=== PATIENT | male | born 2000 | race Caucasian/White ===

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

== ENCOUNTER 2019-11-23 00:30 | Emergency (ER) | payer BC, OTHER ==
[2019-11-23] MEDS ORDERED: ONDANSETRON 4 MG/2 ML VIAL IVP STA (01:30)
[2019-11-23] MEDS ORDERED: SODIUM CHLORIDE 0.9% 1,000 ML IV STA (01:30)
--- NOTE | 2019-11-23 01:45 | XR ---
EXAMINATION TYPE: XR KUB DATE OF EXAM: 11/23/2019 COMPARISON: NONE HISTORY: Nausea and vomiting TECHNIQUE: 2 views upright FINDINGS: Bowel gas pattern is normal. There is no sign of intestinal obstruction or pneumoperitoneum . Fecal pattern is normal. Lung bases are clear. There is no evidence of a mass. IMPRESSION: Nonacute abdomen.
[2019-11-23 01:48] LABS: Basophils # (A) 0.1 k/uL (0-0.2); Basophils % (A) 2 %; Eosinophils # (A) 0.1 k/uL (0-0.7); Eosinophils % (A) 2 %; HCT 45.7 % (39.0-53.0); HGB 15.4 gm/dL (13.0-17.5); Lymphocytes # (A) 0.2 k/uL (1.0-4.8); Lymphocytes % (A) 4 %; MCHC 33.8 g/dL (31.0-37.0); MCV 88.8 fL (80.0-100.0); Mean Platelet Volume 6.9; Monocytes # (A) 0.2 k/uL (0-1.0); Monocytes % (A) 6 %; Neutrophils # (A) 3.6 k/uL (1.3-7.7); Neutrophils % (A) 85 %; Platelet Count 111 k/uL (150-450); RBC 5.15 m/uL (4.30-5.90); WBC 4.2 k/uL (3.8-10.6)
[2019-11-23 01:59] LABS: Appearance,Urine Clear (Clear); Bilirubin,Urine Negative (Negative); Blood,Urine Negative (Negative); Color,Urine Yellow; Glucose,Urine (UA) Negative (Negative); Ketones,Urine Negative (Negative); Leukocyte Esterase,Urine Negative (Negative); Nitrite,Urine Negative (Negative); PH, Urine 6.5 (5.0-8.0); Protein,Urine Trace (Negative); Specific Gravity,Urine 1.031 (1.001-1.035)
[2019-11-23 02:13] LABS: ALT 17 U/L (4-49); AST 22 U/L (17-59); African American GFR (CKD) >90 (>60 ml/min/1.73 sqM); Alkaline Phosphatase 61 U/L (38-126); Anion Gap 5 mmol/L; Blood Urea Nitrogen 15 mg/dL (9-20); Calcium 9.1 mg/dL (8.4-10.2); Carbon Dioxide 28 mmol/L (22-30); Chloride 105 mmol/L (98-107); Glucose 104 mg/dL (74-99); Non-African American GFR(CKD) >90 (>60 ml/min/1.73 sqM); Potassium 3.8 mmol/L (3.5-5.1); Sodium 138 mmol/L (137-145); Total Bilirubin 0.6 mg/dL (0.2-1.3); Total Protein 6.3 g/dL (6.3-8.2)
[2019-11-23] MEDS ORDERED: ONDANSETRON 4 MG ODT STARTER PACK 2 TAB BTL PO STA (02:42)
--- NOTE | 2019-11-23 02:43 | ED ---
General Adult HPI - General Chief complaint: Abdominal Pain Stated complaint: problems with gallbladder Time Seen by Provider: 11/23/19 01:09 Source: patient, RN notes reviewed, old records reviewed Mode of arrival: ambulatory Limitations: no limitations - History of Present Illness Initial comments: 19-year-old male patient with no pertinent past medical history presents to ED for chief complaint of approximately 3 weeks of nausea vomiting and diarrhea. Patient reports that over the last 3 weeks after he eats greasy foods she is having nausea vomiting and diarrhea. Patient also reports that he has had some waxing and waning fevers and chills. Denies any other complaints at this time. Systemic: Pt denies fatigue, fever/chills, rash. Pt denies weakness, night sweats, weight loss. Neuro: Pt denies headache, visual disturbances, syncope or pre-syncope. HEENT: Pt denies ocular discharge or irritation, otalgia, rhinorrhea, pharyngitis or notable lymphadenopathy. Cardiopulmonary: Pt denies chest pain, SOB, heart palpitations, dyspnea on exert ion. Abdominal/GI: Pt denies abdominal pain. : Pt denies dysuria, burning w/ urination, frequency/urgency. Denies new onset urinary or bowel incontinence. MSK: Pt denies myalgia, loss of strength or function in extremities. Neuro: Pt denies new onset weakness, paresthesias. - Related Data Previous Rx's Medication Instructions Recorded Ondansetron Odt [Zofran ODT] 4 mg PO Q8HR PRN #20 tab 11/23/19 Allergies Allergy/AdvReac Type Severity Reaction Status Date / Time amoxicillin Allergy Unknown Verified 07/06/17 04:33 Childhood Penicillins Allergy Unknown Verified 07/06/17 04:33 Childhood Review of Systems ROS Statement: Those systems with pertinent positive or pertinent negative responses have been documented in the HPI. ROS Other: All systems not noted in ROS Statement are negative. Past Medical History Past Medical History: Asthma History of Any Multi-Drug Resistant Organisms: None Reported Past Surgical History: No Surgical Hx Reported Past Psychological History: ADD/ADHD Smoking Status: Current every day smoker Past Alcohol Use History: None Reported Past Drug Use History: Marijuana General Exam - General Exam Comments Initial Comments: Constitutional: NAD, AOX3, Pt has pleasant affect. HEENT: NC/AT, trachea midline, neck supple, no lymphadenopathy. Posterior pharynx non erythematous, without exudates. External ears appear normal, without discharge. Mucous membranes moist. Eyes PERRLA, EOM intact. There is no scleral icterus. No pallor noted. Cardiopulmonary: RRR, no murmurs, rubs or gallops, no JVD noted. Lungs CTAB in anterior and posterior flannery. No peripheral edema. Abdominal exam: Abdomen soft and non-distended. Abdomen non-tender to palpation in all 4 quadrants. Bowel sounds active in LLQ. No hepatosplenomegaly. No ecchymosis Neuro: CN II-XII grossly intact. No nuchal rigidity. No raccon eyes, no moreno sign, no hemotympanum. No cervical spinal tenderness. MSK: No posterior calf tenderness bilaterally, homans sign negative bilaterally. Posterior tibialis and radial pulse +2 bilaterally. Sensation intact in upper and lower extremities. Full active ROM in upper and lower extremities, 5/5 stregnth. Limitations: no limitations Course Vital Signs 11/23/19 11/23/19 00:50 02:45 Temperature 98.2 F 100.8 F H Pulse Rate 90 75 Respiratory 18 16 Rate Blood Pressure 115/77 135/71 O2 Sat by Pulse 99 99 Oximetry Medical Decision Making - Medical Decision Making 19-year-old male patient with no pertinent past medical history presents to ED for chief complaint of approximately 3 weeks of nausea vomiting and diarrhea. Patient reports that over the last 3 weeks after he eats greasy foods she is having nausea vomiting and diarrhea. Patient also reports that he has had some waxing and waning fevers and chills. Denies any other complaints at this time. Patient vital signs stable where she stable, afebrile, patient did spike a fever and was treated with antipyretic.. Physical exam displayed nontender abdomen. Laboratory investigations revealed platelets of 111, otherwise noncompressive. Patient instructed Zofran and fluid bolus. KUB displayed nonacute abdomen. Patient discharged will follow-up with surgeon for possible gallbladder dysfunction, also follow up with GI for evaluation of possible inflammatory bowel disease. Patient reports he is not able to provide a stool sample. Case discussed with Dr. Meza. - Lab Data Result diagrams: 11/23/19 01:26 11/23/19 01:26 Lab Results 11/23/19 11/23/19 11/23/19 Range/Units 01:26 01:26 01:26 WBC 4.2 (3.8-10.6) k/uL RBC 5.15 (4.30-5.90) m/uL Hgb 15.4 (13.0-17.5) gm/dL Hct 45.7 (39.0-53.0) % MCV 88.8 (80.0-100.0) fL MCH 30.0 (25.0-35.0) pg MCHC 33.8 (31.0-37.0) g/dL RDW 12.0 (11.5-15.5) % Plt Count 111 L (150-450) k/uL Neutrophils % 85 % Lymphocytes % 4 % Monocytes % 6 % Eosinophils % 2 % Basophils % 2 % Neutrophils # 3.6 (1.3-7.7) k/uL Lymphocytes # 0.2 L (1.0-4.8) k/uL Monocytes # 0.2 (0-1.0) k/uL Eosinophils # 0.1 (0-0.7) k/uL Basophils # 0.1 (0-0.2) k/uL Sodium 138 (137-145) mmol/L Potassium 3.8 (3.5-5.1) mmol/L Chloride 105 (98-107) mmol/L Carbon Dioxide 28 (22-30) mmol/L Anion Gap 5 mmol/L BUN 15 (9-20) mg/dL Creatinine 0.94 (0.66-1.25) mg/dL Est GFR (CKD-EPI)AfAm >90 (>60 ml/min/1.73 sqM) Est GFR (CKD-EPI)NonAf >90 (>60 ml/min/1.73 sqM) Glucose 104 H (74-99) mg/dL Plasma Lactic Acid Aramis 0.8 (0.7-2.0) mmol/L Calcium 9.1 (8.4-10.2) mg/dL Total Bilirubin 0.6 (0.2-1.3) mg/dL AST 22 (17-59) U/L ALT 17 (4-49) U/L Alkaline Phosphatase 61 (38-126) U/L Total Protein 6.3 (6.3-8.2) g/dL Albumin 4.0 (3.5-5.0) g/dL Lipase 43 (23-300) U/L Urine Color Urine Appearance (Clear) Urine pH (5.0-8.0) Ur Specific [place] (1.001-1.035) Urine Protein (Negative) Urine Glucose (UA) (Negative) Urine Ketones (Negative) Urine Blood (Negative) Urine Nitrite (Negative) Urine Bilirubin (Negative) Urine Urobilinogen (<2.0) mg/dL Ur Leukocyte Esterase (Negative) Influenza Type A RNA (Not Detectd) Influenza Type B (PCR) (Not Detectd) 11/23/19 11/23/19 Range/Units 01:32 02:50 WBC (3.8-10.6) k/uL RBC (4.30-5.90) m/uL Hgb (13.0-17.5) gm/dL Hct (39.0-53.0) % MCV (80.0-100.0) fL MCH (25.0-35.0) pg MCHC (31.0-37.0) g/dL RDW (11.5-15.5) % Plt Count (150-450) k/uL Neutrophils % % Lymphocytes % % Monocytes % % Eosinophils % % Basophils % % Neutrophils # (1.3-7.7) k/uL Lymphocytes # (1.0-4.8) k/uL Monocytes # (0-1.0) k/uL Eosinophils # (0-0.7) k/uL Basophils # (0-0.2) k/uL Sodium (137-145) mmol/L Potassium (3.5-5.1) mmol/L Chloride (98-107) mmol/L Carbon Dioxide (22-30) mmol/L Anion Gap mmol/L BUN (9-20) mg/dL Creatinine (0.66-1.25) mg/dL Est GFR (CKD-EPI)AfAm (>60 ml/min/1.73 sqM) Est GFR (CKD-EPI)NonAf (>60 ml/min/1.73 sqM) Glucose (74-99) mg/dL Plasma Lactic Acid [place] (0.7-2.0) mmol/L Calcium (8.4-10.2) mg/dL Total Bilirubin (0.2-1.3) mg/dL AST (17-59) U/L ALT (4-49) U/L Alkaline Phosphatase (38-126) U/L Total Protein (6.3-8.2) g/dL Albumin (3.5-5.0) g/dL Lipase (23-300) U/L Urine Color Yellow Urine Appearance Clear (Clear) Urine pH 6.5 (5.0-8.0) Ur Specific [place] 1.031 (1.001-1.035) Urine Protein Trace H (Negative) Urine Glucose (UA) Negative (Negative) Urine Ketones Negative (Negative) Urine Blood Negative (Negative) Urine Nitrite Negative (Negative) Urine Bilirubin Negative (Negative) Urine Urobilinogen 2.0 (<2.0) mg/dL Ur Leukocyte Esterase Negative (Negative) Influenza Type A RNA Not Detected (Not Detectd) Influenza Type B (PCR) Not Detected (Not Detectd) Disposition Clinical Impression: Nausea vomiting and diarrhea Disposition: HOME SELF-CARE Condition: Stable Instructions (If sedation given, give patient instructions): Acute Nausea and Vomiting (ED), Acute Diarrhea (ED) Additional Instructions: Follow-up with primary care provider GI and surgical territory manager tomorrow. Return immediately to ER if condition worsens in any way. Prescriptions: Ondansetron Odt [Zofran ODT] 4 mg PO Q8HR PRN #20 tab PRN Reason: Nausea Is patient prescribed a controlled substance at d/c from ED?: No Referrals: Rosalia Peterson MD [Primary Care Provider] - 1-2 days Lisa Vinson DO [Doctor of Osteopathic Medicine] - 1-2 days Kiley Dubose MD [STAFF PHYSICIAN] - 1-2 days
[2019-11-23 02:47] VITALS: TEMP 100.8
[2019-11-23] MEDS ORDERED: ACETAMINOPHEN TAB 325 MG TAB PO STA (02:48)
[2019-11-23 03:50] VITALS: BP 124/58; PULSE 79; RESP 19
== END 2019-11-23 04:04 | disposition home or self-care (01) ==
LOC: EC 00:30
DX: R11.2 Nausea with vomiting, unspecified (principal); R19.7 Diarrhea, unspecified; R50.9 Fever, unspecified; F17.200 Nicotine dependence, unspecified, uncomplicated; Z88.0 Allergy status to penicillin
CPT/HCPCS: 36415; 80053; 83605; 83690; 85025; 81003; 87502; 74018; 99284; 96374; 96361 ×2; J2405; S0119

== ENCOUNTER 2020-11-01 21:19 | Emergency (ER) | payer BC, OTHER ==
[2020-11-01] MEDS ORDERED: LIDOCAINE 1% INJ 10MG/ML (20 ML MDV) SQ ONE (21:30)
--- NOTE | 2020-11-01 21:42 | ED ---
General Adult HPI - General Chief complaint: Wound/Laceration Stated complaint: Right hand lac Time Seen by Provider: 11/01/20 21:30 Source: family, RN notes reviewed Mode of arrival: ambulatory Limitations: no limitations - History of Present Illness Initial comments: 20-year-old male presents to the emergency room for a chief complaint of laceration. Patient reports that he was very angry and decided to smash a coffee pot across his knee. She reports he cut his finger and can't get it to stop bleeding. Patient reports he is having difficulty bending his finger. He reports he is up-to-date on tetanus as of 2 years ago. He denies any other injuries.Patient has no other complaints at this time including shortness of breath, chest pain, abdominal pain, nausea or vomiting, headache, or visual changes. - Related Data Previous Rx's Medication Instructions Recorded Ondansetron Odt [Zofran ODT] 4 mg PO Q8HR PRN #20 tab 11/23/19 Cephalexin [Keflex] 500 mg PO Q6HR 10 Days #40 cap 11/01/20 Allergies Allergy/AdvReac Type Severity Reaction Status Date / Time amoxicillin Allergy Unknown Verified 11/01/20 21:26 Childhood Penicillins Allergy Unknown Verified 11/01/20 21:26 Childhood Review of Systems ROS Statement: Those systems with pertinent positive or pertinent negative responses have been documented in the HPI. ROS Other: All systems not noted in ROS Statement are negative. Past Medical History Past Medical History: Asthma History of Any Multi-Drug Resistant Organisms: None Reported Past Surgical History: No Surgical Hx Reported Past Psychological History: ADD/ADHD Smoking Status: Never smoker Past Alcohol Use History: None Reported Past Drug Use History: Marijuana General Exam - General Exam Comments Initial Comments: Right upper extremity: Patient has a large 3 cm laceration noted palmar aspect of the right third digit proximal phalanx. Patient has difficulty flexing the finger with limited range of motion. Capillary refill less than 2 seconds in the right third digit. Radial pulse 2+ in the right upper extremity. Limitations: no limitations General appearance: alert, in no apparent distress Head exam: Present: atraumatic, normocephalic, normal inspection Eye exam: Present: normal appearance, PERRL, EOMI. Absent: scleral icterus, conjunctival injection, periorbital swelling ENT exam: Present: normal exam, mucous membranes moist Neck exam: Present: normal inspection, full ROM. Absent: tenderness, meningismus, lymphadenopathy Respiratory exam: Present: normal lung sounds bilaterally. Absent: respiratory distress, wheezes, rales, rhonchi, stridor Cardiovascular Exam: Present: regular rate, normal rhythm, normal heart sounds. Absent: systolic murmur, diastolic murmur, rubs, gallop, clicks Course Vital Signs 11/01/20 11/01/20 21:20 21:43 Temperature 98.7 F Pulse Rate 87 Respiratory 16 Rate Blood Pressure 129/78 122/62 O2 Sat by Pulse 99 Oximetry Procedures - Laceration Laceration #1 Consent Obtained: verbal consent Indication: laceration Site: upper extremity Size (cm): 3 Description: linear Depth: involves tendon (flexor tendon, proximal phalanx) Anesthetic Used: lidocaine 1% Anesthesia Technique: nerve block Amount (mls): 4 Pre-repair: wound explored, irrigated extensively (with salne pressure irrigation) Type of Sutures: nylon Size of Sutures: 5-0 Number of Sutures: 6 Technique: simple, interrupted Patient Tolerated Procedure: well, no complications Medical Decision Making - Medical Decision Making 20-year-old male presents to the emergency room for chief clinic laceration. This involves the proximal phalanx, palmar aspect of the right third digit of the right hand. Patient is unable to flex this digit. Digital block was performed and wound was irrigated thoroughly with saline pressure irrigation and explored. There is evidence of tendon laceration. I was unable to suture tendon together to repair it. Laceration was closed with simple and opted sutures. Patient was given Ancef and started on Keflex. Tetanus is up-to-date. I did speak with sylvester kay from [facility] who recommends either following with [facility] given they do not have a hand surgeon. He also offers to see the patient if [facility] does not want to and refer them out of town to a hand surgeon. I did call Dr. Ayala who is on-call who does recommend seeing patient in office with Dr. Lacy. Patient was splinted and wound was wrapped. He will follow up tomorrow morning. I discussed this case with attending Dr. Larkin who agrees with this assessment and treatment plan. Disposition Clinical Impression: Laceration, Flexor tendon laceration of finger with open wound Disposition: HOME SELF-CARE Condition: Good Instructions (If sedation given, give patient instructions): Care For Your Stitches (ED), Laceration (ED), Tendon Laceration (ED) Additional Instructions: Please keep the area clean. Monitor for signs of infection such as spreading or streaking redness, drainage, or fever and return if these occur. You need to f ollow up with orthopedics. Call tomorrow morning for the earliest appointment for laceration of your tendon in your finger. The sutures can come out in 10-14 days. You can return to the emergency room for removal of these. Prescriptions: Cephalexin [Keflex] 500 mg PO Q6HR 10 Days #40 cap Is patient prescribed a controlled substance at d/c from ED?: No Referrals: Rosalia Peterson MD [Primary Care Provider] - 1-2 days Mayito Lacy DO [Doctor of Osteopathic Medicine] - 1-2 days Time of Disposition: 23:02
--- NOTE | 2020-11-01 22:06 | XR ---
EXAMINATION TYPE: XR finger RT DATE OF EXAM: 11/01/2020 COMPARISON: NONE HISTORY: Laceration TECHNIQUE: 3 views FINDINGS: The middle finger is intact. I see no fracture nor dislocation. Joint spaces are normal. IMPRESSION: Negative right middle finger exam. No evidence of foreign body.
[2020-11-01] MEDS ORDERED: ceFAZolin 1,000 MG VIAL (IM USE) IM STA (22:34)
[2020-11-01 23:31] VITALS: BP 136/73; PULSE 86; RESP 14; TEMP 98.4
== END 2020-11-01 23:30 | disposition home or self-care (01) ==
LOC: EC 21:19
DX: S61.212A Laceration without foreign body of right middle finger without damage to nail, initial encounter (principal); Z88.0 Allergy status to penicillin; W26.8XXA Contact with other sharp object(s), not elsewhere classified, initial encounter; Y93.89 Activity, other specified; Y92.009 Unspecified place in unspecified non-institutional (private) residence as the place of occurrence of the external cause
CPT/HCPCS: 73140; 96372; 99283; 12002; J0690; J2001